=== PATIENT | male | born 1950 | race Caucasian/White ===

== ENCOUNTER 2023-12-03 17:58 | Emergency (ER) | payer MEDICARE, BC, SELFPAY ==
[2023-12-03 18:02] VITALS: BP 113/57; PULSE 93; RESP 18; TEMP 36.1; O2SAT 96; BMI 31.2
[2023-12-03 18:21] LABS: Glucose, Point-of-Care* 98 mg/dl (60-115)
--- NOTE | 2023-12-03 18:50 | CRLHL7_ITS ---
For Patients: As a result of the Century Cures Act, medical imaging exams and procedure reports are released immediately into your electronic medical record. You may view this report before your referring provider. If you have questions, please contact your health care provider. INDICATION: Toe pain TECHNIQUE: Three-views of the left foot FINDINGS/impression: Normal alignment. No acute fractures or acute osseous abnormalities. No fractures. No erosive change no radiographic findings for osteomyelitis Dictated by Nalini Torres MD @ 12/03/2023 7:20:22 PM (Electronically Signed)
[2023-12-03] MEDS: IBUPROFEN 600 MG TABLET PO (18:57)
--- OUTSIDE RECORDS SUMMARY | 2023-12-03 19:18 | XMS_ITS | Clinical Summary ---
Author Name Unknown Organization [employer] [facility] [employer] Address [place], [place] [address] Care Team Providers Care Assistant Plant Control Operator Name Role Phone Julia Diaz Baldemar AuD Unavailable [phone] Cristel Renteria MD Primary Care Prov ider Allergies No known active allergies Medications Medication Sig Dispensed Refills Start Date End Date Status ASPIRIN 81 MG TABIndications:Type II or unspecified type diabetes mellitus without mention of complication, not stated as uncontrolled take 1 tablet (81mg) by oral route once daily 30 0 12/19/2006 Active MULTIVITAMIN ORAL Takes 1 tablet orally daily. 0 Active FLAXSEED OIL 1,000 MG CAP 1 tab twice daily 0 09/09/2008 Active Diabetic ShoeIndications:Diabe tic polyneuropathy associated with type 2 diabetes mellitus (HC),Great toe amputation status, right,Corns and callosities As directed. 2 Each 0 08/30/2017 Active flash glucose scanning reader (FREESTYLE DARON 14 DAY READER) miscIndications:diabe ramesh mellitus As directed. Wear each for 14 days Indications: diabetes 2 Each 0 02/07/2019 Active flash glucose sensor (FREESTYLE DARON 14 DAY SENSOR) kitIndications:diabet es mellitus As directed. Indications: diabetes 1 Each 0 02/07/2019 Active lancets 33 gauge miscIndications:diabe ramesh mellitus As directed. Indications: diabetes 100 Each 12 02/07/2019 Active blood sugar diagnostic (ONETOUCH VERIO) stripIndications:diab etes mellitus Test 1 times per day. Verio strip Indications: diabetes 100 Strip 12 10/22/2019 Active ketorolac 0.5 % ophthalmic (ACULAR) solution 0 02/03/2021 Active amoxicillin-clavulana te 875-125 mg tablet (AUGMENTIN)Indication s:Acute non-recurrent maxillary sinusitis TAKE ONE TABLET BY MOUTH TWICE A DAY WITH MEALS FOR 7 DAYS 14 Tablet 0 03/21/2023 Active atorvastatin (LIPITOR) 20 mg tabletIndications:Hyp ercholesteremia TAKE 1 TABLET BY MOUTH AT BEDTIME 90 Tablet 1 05/29/2023 Active Janumet 50-1,000 mg tabletIndications:Typ e 2 diabetes mellitus with diabetic neuropathy, without long-term current use of insulin (HC) TAKE 1 TABLET BY MOUTH TWICE DAILY WITH MEALS 180 Tablet 0 08/16/2023 Active levothyroxine (SYNTHROID) 50 mcg tabletIndications:Hyp othyroidism, unspecified type TAKE 1 TABLET BY MOUTH EVERY DAY. GENERIC EQUIVALENT FOR SYNTHROID 90 Tablet 0 08/16/2023 Active glipiZIDE (GLUCOTROL) 5 mg tabletIndications:Typ e 2 diabetes mellitus with diabetic neuropathy, without long-term current use of insulin (HC) TAKE 1 TABLET BY MOUTH TWICE DAILY BEFORE MEALS 180 Tablet 0 08/16/2023 Active lisinopriL (PRINIVIL; ZESTRIL) 5 mg tabletIndications:Ess ential hypertension TAKE 1 TABLET BY MOUTH ONCE DAILY 90 Tablet 0 08/16/2023 Active Active Problems Problem Noted Date Diagnosed Date Background retinopathy 04/18/2022 Diabetic peripheral neuropathy 10/21/2020 Acquired absence of right great toe 06/19/2020 Adenomatous colon polyp 11/17/2016 Overview: Colonoscopy 10/2016 polyps repeat in 5 years Colonoscopy 02/2022 diverticulosis, repeat in 5 years Family history of colon cancer 11/16/2016 Overview: Colonoscopy 02/2022 diverticulosis, repeat in 5 years Diverticulosis of large intestine without hemorr antonella 11/16/2016 Diabetes mellitus 04/11/2014 Unspecified hypothyroidism 10/16/2008 Unspecified essential hypertension 04/17/2007 Overview: No outpatient antihypertensives DIABETIC RETINOPATHY 03/01/2007 Overview: Moderate nonproliferative Other and unspecified hyperlipidemia 10/20/2006 Overview: simvastatin 20 mg = 2 x 10 mg tablet (ZOCOR), 20 mg, Oral, DAILY WITH EVENING MEAL Resolved Problems Problem Noted Date Diagnosed Date Resolved Date Diabetic ulcer of right midf oot associated with type 2 diabetes mellitus, limited to breakdown of skin 09/10/2021 09/10/2021 Diabetes type 2, uncontrolled 04/24/2012 05/15/2012 Colon cancer screening 11/14/201111/17 Amputation of toe 02/11/2009 04/05/2022 DIABETIC FOOT ULCER 04/18/2008 02/12/20 09 Overview: Ongoing x 4 years, recent surgery/debridement (ostectomy) by Dr. Rod on 04/25/08. Cellulitis and abscess of foot, except toes 04/17/2007 04/29/2009 Overview: R foot, post operative DIABETIC FOOT ULCER 01/12/2007 05/15/20 12 Type II or unspecified type diabetes mellitus with neurological manifestations, not stated as uncontrolled 10/03/2006 05/15/2012 Overview: Diagnosed in 1995, oral medication, not on insulin. Type II or unspecified type diabetes mellitus without mention of complication, not stated as uncontrolled 06/30/2006 04/29/2008 Overview: 1996 Encounters Date Type Department Care Team Description 11/30/2023 8:00 AM SENIOR AIR DIRECTOR Orders Only [facility] [address] [place] [address] Lab, [place] [facility] 11/30/2023 Travel from Last 3 Months Immunizations Name Administration Dates Next Due AMB INFLUENZA IIV3 (AGE 65+ YRS) PF (Flu Clinic Only) 08/03/2018,07/15/2017 AMB Influenza, IIV3 (Age >=3 years)(Flu Clinic Only) 07/24/2013,08/17/2012,08/25/2010,2007 AMB Influenza, IIV4 PF (=>6 mos Flulaval,Fluzone Fluarix)(Flu Clinic Only) 08/03/2019 Amb Influenza, Inact (High-d ose) (Flu Clinic Only) 08/20/2016,07/18/2015 Amb Influenza, Inactivated A IIV4 (Age 65+ Years) Preserv Free 08/04/2020 COVID-19 vaccine (Moderna 100mcg/0.5mL) PF, MDV 02/03/2022,08/24/2021,01/09/2021,2020 COVID-19 vaccine (Moderna 50mcg/0.5mL) 12YO+ BIVALENT PF, MDV 03/29/2023,07/13/2022 Influenza A (H1N1), Inactivated 10/21/2009 Influenza A (H1N1), Inactiva danita (Age >=3 Years) 10/21/2009 Influenza, High-dose Inactivated 07/15/2014 Influenza, IIV3 (Age 6-35 mos) 08/20/2011 Influenza, IIV3 (Age >=3 years) 08/20/20 11,08/19/2009,08/19/2005,2004 Influenza, Inactivated AIIV4 (Age 65+ Years) Preserv Free 08/22/2023,08/09/2022,08/05/2021 Pneumococcal Poly,23-Valent (Pneumovax) 11/29/2013 Pneumococcal conj 13-Valent (Prevnar 13) 10/17/2017 Tdap 12/20/2007 Zoster (Zostavax-ZVL, live) 05/15/2012 Family History Medical History Relation Name Comments Good Health Brother 1 Good Health Brother 2 Good Health Daughter 1 Good Health Daughter 2 Unknown Father age 93 Other Mother MVA Cancer Other 2 cousins breas t cancer Cancer-colon Sister age 64 Relation Name Status Comments Brother 1 Brother 2 Daughter 1 Daughter 2 Father lives on the Fa no meds Mother (Age 70) Other Sister Social History Tobacco Use Types Packs/Day Years Used Date Smoking Tobacco: Never Smokeless Tobacco: Never Tobacco Cessation:Counseling Given: Yes Comments:none Alcohol Use Standard Drinks/Week Comments No 0 (1 standard drink = 0.6 oz pur e alcohol) none PHQ-2 Answer Date Recorded PHQ-2 TOTAL SCORE 0 04/05/2022 Social Connections Answer Date Recorded Frequency of Communication with Friends and Fami ly Not on file 10/31/2021 Financial Resource Strain Answer Date R ecorded Difficulty of Paying Living Expenses Not on file 10/31/2021 Difficulty of Paying Living Expenses Not on file 10/31/2021 Sex and Gender Information Value Date Recorded Sex Assigned at Not on file Gender Identity Not on file Sexual Orientation Not on file Obstetrics History Last Filed Vital Signs Vital Sign Reading Time Taken Comments Blood Pressure 120/70 01/13/2023 8:56 AM CDT Pulse 92 03/14/2023 2:27 PM CDT Temperature 37.1 ??C (98.8 ??F) 07/06/2023 3:57 PM CD T Respiratory Rate 16 05/24/2021 2:04 PM CDT Oxygen Saturation 96% 03/14/2023 2:27 PM CDT Inhaled Oxygen Concentration - - Weight 110.5 kg (243 lb 8 oz) 03/14/2023 2:27 PM CDT Height 185.4 cm (6' 1) 04/05/2022 9:20 AM CDT Body Mass Index 32.13 04/05/2022 9:20 AM CDT Plan of Treatment Upcoming Encounters Date Type Department Care Team (Late st Contact Info) Description 12/06/2023 9:05 AM SENIOR AIR DIRECTOR Office Visit [facility] [address] [place] [address] Cristel Renteria MD [address] [place] [address] 03/07/2024 8:00 AM CDT Office Visit [facility] [address] [place] [address] Sylvester Clark DPM [address] [place] [address] Health Maintenance Due Date Last Done Comments Zoster (shingles) series for age 50+ (2 of 3) 07/10/2012 05/15/2012 Tetanus booster 12/20/2017 12/20/2007 BMI (ht and wt on same day) for age 18+ 04/05/2023 04/05/2022, 02/05/2021, 07/29/2020, Additional history exists Depression screening for age 12+ 04/05/2023 04/05/2022, 07/29/2020, 07/29/2020, Additional history exists Medicare Wellness for age 65+ 04/06/2023, 07/29/2020, 01/18/2019, Additional history exists COVID-19 vaccine series ( season) 2023 03/29/2023, 07/13/2022, 02/03/2022, Additional history exists Colonoscopy through age 75 03/02/202703/02, 03/02/2022, 11/16/2016, Additional history exists Lipids for age 45-75 04/01/2027 04/01/2022, 09/09/2021, 07/24/2020, Additional history exists Tdap Completed 12/20/2007 Pneumococcal series for age 65+ Completed 7, 11/29/2013 Hepatitis C screening for ag e 18-79 Completed 10/31/2019 (Completed outsid e of [place]) Influenza for age 65+ Completed 08/22/2023 , 08/09/2022, 08/05/2021, Additional history exists Goals Goal Patient Goal Type Associated Problems Recent Progress Patient-Stated? Author BLOOD PRESSURE-MAINTA INS BP LESS THAN 130/80 Blood Pressure No Cristel Renteria MD BLOOD PRESSURE - MAINTAINS BP less than 140/90 Blood Pressure No Cristel Renteria MD Procedures Procedure Name Priority Date/Time Associated Diagnosis Comments URINE ALBUMIN TO CREATININE RATIO, RANDOM Routine 11/30/2023 9:30 AM SENIOR AIR DIRECTOR Type 2 diabetes mellitus without complication, without long-term current use of insulin (HC) HEMOGLOBIN A1C Routine 11/30/2023 7:55 AM SENIOR AIR DIRECTOR Type 2 diabetes mellitus without complication, without long-term current use of insulin (HC) from Last 3 Months Results * URINE ALBUMIN TO CREATININE RATIO, RANDOM (11/30/2023 9:30 AM SENIOR AIR DIRECTOR) ALB RAND URINE <12.0 mg/L 11/30/2023 9:42 PM SENIOR AIR DIRECTOR [facility] CREATININE,URINE 1.51 g/L 11/30/19 9:42 PM SENIOR AIR DIRECTOR [facility] ALBUMIN TO CREATININE RATIO,RAND UR 11/30/2023 9:42 PM SENIOR AIR DIRECTOR [facility] Comment:Urine Albumin below measurement range, unable to calculate. Urine URINE SPECIMEN / Unknown Non-Blood / Unknown 11/30/2023 9:30 AM SENIOR AIR DIRECTOR 11/30/2023 9:42 AM SENIOR AIR DIRECTOR Narrative [facility] - 11/30/2023 9:42 PM SENIOR AIR DIRECTOR If Albumin to Creatinine Ratio is elevated, consider the following: ? Elevations seen with incipient nephropathy associated ?? with diabetes mellitus or hypertension. Stress, exercise,hematuria, ?? and urinary tract infection may also produce elevated results. If clinically indicated, confirm with ?24 Hour Albumin to Creatinine Ratio. ?? Cristel Renteria MD URINE [facility] [address] [place] [address], * (ABNORMAL) HEMOGLOBIN A1C MONITORING (POCT) (11/30/2023 7:55 AM SENIOR AIR DIRECTOR) HEMOGLOBIN A1C MONITORING (POCT) 7.6(H) <=6.4 % 11/30/2023 8:05 AM SENIOR AIR DIRECTOR [facility] Blood BLOOD SPECIMEN / Unknown Venipuncture / Unknown 11/30/2023 7:55 AM SENIOR AIR DIRECTOR 11/30/2023 7:56 AM SENIOR AIR DIRECTOR Narrative [facility] - 11/30/2023 8:05 AM SENIOR AIR DIRECTOR ? (<=6.9%) ? Indicates good control ? (7.0% to 7.9%) ? Indicates fair control ? (>=8.0%) ? Indicates poor control ?? NOTE: ??These thresholds are guidelines and ?individual targets may vary. Falsely low levels may be seen with: Recent Transfusion, Recent Significant Blood Loss, Hemolytic Diseases, or Falsely elevated levels may be seen with: Untreated Anemias, Splenectomy ? Cristel Renteria MD CHEMISTRY [facility] [address] [place] [address], [place] [phone] from Last 3 Months Advance Directives Documents on File Type Date Recorded Patient Staff Pharmacist Hospital Expl anation Healthcare Directive 07/25/2013 3:21 PM AM Shi [place], 2013 Latest Code Status on File Code Status Date Activated Date Inactivated Comments Full Code 02/05/2009 8:32 AM 02/05/2009 2:53 PM Code Status History Code Status Date Activated Date Inactivated Comments Full Code 04/29/2008 12:31 AM 05/01/2008 12:47 PM Full Code 04/25/2008 6:15 AM 04/25/2008 12:18 PM Full Code 04/17/2007 4:12 PM 04/19/2007 4:05 PM Full Code 04/16/2007 2:36 PM 04/17/2007 4:12 PM Care Teams Assistant Plant Control Operator Relationship Specialty Start Date End Date Cristel Renteria MD [address] [place] [address] PCP - General Family Practice 03/03/20 Julia Diaz AuD Audiology 12/03/13
[2023-12-03] MEDS: GABAPENTIN 100 MG CAPSULE PO (19:25)
--- NOTE | 2023-12-03 19:31 | ED_ITS ---
HPI - General Adult General Chief complaint: Extremity Pain/Injury, Lower Stated complaint: L toes diabetic issues, pain Time Seen by Provider: 12/03/23 18:14 History of Present Illness HPI narrative: This is a pleasant 73-year-old male with a history of type 2 diabetes (now well controlled by diet so off medications and does not routinely check his blood sugars on the advice of his doctor), known diabetic neuropathy with previous right great toe amputation and chronic numbness affecting the toes on both of his feet. He presents to the ER today for pain involving the 2nd, 3rd, 4th toes on his left foot. Since yesterday he has been having very brief 1-4 second episodes of sharp intense stabbing pain in those 3 toes only. He does know what brings it on. It happens every few minutes and last for brief 2nd and then is gone. No other symptoms. No redness or swelling of his toes. No pallor or discoloration of his toes. No known injury. He has not dropped anything on his foot. He wears diabetic protective shoes. He has been doing a lot of walking at the widest a healthy. He stopped bicycling recently because he has trouble with his right knee. No fevers or chills. No swelling in his toes or foot or leg. Related Data Home Medications Medication Instructions Recorded Confirmed atorvastatin 20 mg tablet 20 mg PO QPM 12/03/23 12/03/23 glipizide 5 mg tablet 5 mg PO BID 12/03/23 12/03/23 levothyroxine 50 mcg tablet 50 mcg PO DAILY 12/03/23 12/03/23 lisinopril 5 mg tablet 5 mg PO DAILY 12/03/23 12/03/23 sitagliptin phosphate 50 1 tab PO BID 12/03/23 12/03/23 mg-metformin 1,000 mg tablet (Nick) Previous Rx's Medication Instructions Recorded gabapentin 100 mg capsule 100 mg PO TID #14 caps 12/03/23 ibuprofen 600 mg tablet 600 mg PO TID PRN #14 tabs 12/03/23 Allergies Allergy/AdvReac Type Severity Reaction Status Date / Time No Known Drug Allergies Allergy Verified 12/03/23 18:05 PFSH PFSH Social History Smoking Status: Never smoker How often do you have a drink containing alcohol: never How often do you have six or more drinks on one occasion: Never AUDIT-C Alcohol total score: 0 Non-prescribed substance use: denies use Exam Narrative: Exam Narrative: Constitutional: Appears well-developed and well-nourished. Alert. Conversant. Non toxic. HENT: Head: Atraumatic. Nose: Nose normal. Mouth/Throat: Oral mucosa is clear and moist. no trismus. Eyes: Conjunctivae normal. EOM normal. Pupils equal, round, and reactive to light. No scleral icterus. Neck: Normal range of motion. Neck supple. No tracheal deviation present. Cardiovascular: Normal rate, regular rhythm. No gallop. No friction rub. No murmur heard. Symmetric DP and PT artery pulses Pulmonary/Chest: Effort normal. No stridor. No respiratory distress. No wheezes. No rales. No rhonchi . No tenderness. Abdominal: Soft. Bowel sounds normal. No distension. No mass. No tenderness. No rebound. No guarding. Musculoskeletal: RUE: Normal range of motion. No tenderness. No deformity LUE: Normal range of motion. No tenderness. No deformity RLE: Normal range of motion. No edema. No tenderness. No deformity. Amputation of great toe. Well-healed. LLE: Normal range of motion. No edema. No tenderness. No deformity. There is a very subtle area of abrasion on the dorsum of the 3rd toe without any surrounding erythema. No purulent drainage. No ulcer. Toenails look good. Web spaces look good. Inspection of the 1st, 2nd, 3rd, 4th, 5th toes on the right foot are otherwise normal. Normal distal cap refill. Toes are warm and symmetric with the right foot. Intact plantar flexion and dorsiflexion of the toes and ankle. Normal range of motion. Lymph: No foot redness or ascending lymphangitis Neurological: Alert and oriented to person, place, and time. Normal strength. CN II-VII intact. No sensory deficit. GCS eye subscore is 4. GCS verbal subscore is 5. GCS motor subscore is 6. Normal coordination . He has chronic numbness affecting the toes of both of his feet. No new tenderness palpation. Skin: Skin is warm and dry. No rash noted. No pallor. Normal capillary refill. Psychiatric: Normal mood. Normal affect. Const: Vital Signs, click to edit/add: Vital Signs - 24 hr 12/03/23 18:02 Temperature 96.9 F L Pulse Rate [Right Pulse Oximeter] 93 Respiratory Rate 18 Blood Pressure [Ri ght Upper Arm] 113/57 L Pulse Oximetry 96 Oxygen Delivery Me thod Room Air Course Vital Signs Vital signs: Initial Vital Signs Temperature 96.9 F L 12/03/23 18:02 Temperature Source Temporal Artery Scan 12/03/23 18:02 Pulse Rate 93 12/03/23 18:02 Respiratory Rate 18 12/03/23 18:02 Blood Pressure 113/57 L 12/03/23 18:02 Blood Pressure Mean 75 12/03/23 18:02 Blood Pressure Position Sitting 12/03/23 18:02 Pulse Oximetry 96 12/03/23 18:02 Oxygen Delivery Method Room Air 12/03/23 18:02 Vital Signs Temperature 96.9 F L 12/03/23 18:02 Pulse Rate 93 12/03/23 18:02 Respiratory Rate 18 12/03/23 18:02 Blood Pressure 113/57 L 12/03/23 18:02 Pulse Oximetry 96 12/03/23 18:02 Oxygen Delivery Method Room Air 12/03/23 18:02 Temperature 96.9 F L 12/03/23 18:02 Pulse Rate 93 12/03/23 18:02 Respiratory Rate 18 12/03/23 18:02 Blood Pressure 113/57 L 12/03/23 18:02 Pulse Oximetry 96 12/03/23 18:02 Oxygen Delivery Method Room Air 12/03/23 18:02 Medications Administered Medications: Generic Name Dose Route Start Last Admin Trade Name Freq PRN Reason Stop Dose Admin Gabapentin 100 mg 12/03/23 18:51 12/03/23 19:25 Gabapentin 100 Mg Capsule PO 12/03/23 18:52 100 mg ONCE ONE Administration Ibuprofen 600 mg 12/03/23 18:51 12/03/23 18:57 Ibuprofen 600 Mg Tablet PO 12/03/23 18:52 600 mg ONCE ONE Administration Medical Decision Making [facility] Narrative Medical decision making narrative: Pleasant 73-year-old male presents to the ER today for intermittent very brief but very sharp episodes of pain involving the 2nd, 3rd, 4th toes on the left foot. He has a history of diabetes and diabetic neuropathy. He has had previous have been taken of his right foot great toe. Clinically I suspect that his pain is probably related to diabetic neuropathy in his foot. He says this is happen from time to time intermittently for the past few years and he has al ways, in the past attributed to days when his blood sugar runs high. However his blood sugar in the ER today is normal at 98. I still wonder if this could be diabetic neuropathy pain. Pain is improved intolerable after ibuprofen and gabapentin 100 mg p.o. given here in the ER. Given his diabetic neuropathy and numbness we did obtain x-rays to look for occult fracture, even though exam was normal. X-rays are reassuring. Exam shows no evidence for redness or warmth or purulent drainage to suggest infection on the toes or in the webspaces, under the nails, or on the soles of the foot. No evidence for any radiopaque foreign body visible on the x-ray. There is no pallor, cyanosis, coldness of the toes. He has strong palpable pulses in the PT and DP arteries so I doubt acute limb ischemia. No evidence for swelling to suggest DVT. No evidence for any bony erosions on the x-ray to suggest osteomyelitis. No pain involving his great toe or 5th toe. No other recent injury. No back pain or other pain down the leg to suggest a lumbar radiculopathy. Plan of care will be discharged home his pain is now improving. Follow-up with primary care on Tuesday for recheck. Precautions for return to the ER reviewed. Lab Data Labs: Lab Results 12/03/23 Range/Units 18:20 POC Glucose 98 (60-115) mg/dl Imaging Data xr foot: Attestation: I have reviewed the pertinent imaging results. Radiologist's impression: FINDINGS/impression: Normal alignment. No acute fractures or acute osseous abnormalities. No fractures. No erosive change no radiographic findings for osteomyelitis Discharge Plan Discharge Clinical Impression: Pain of toe of left foot Patient Disposition: Home, Self-Care Condition: Stable Instructions: Diabetic Neuropathy (ED) Additional Instructions: As we discussed, the cause of the pain in her toes is not clear at this time, but we suspect it is related to irritation of the nerves going to your toes from diabetic neuropathy. We can treat this pain with ibuprofen and we will start you on a nerve pain medication called gabapentin. Use caution with gabapentin could because it can cause drowsiness Please follow-up with your regular doctor for recheck on Tuesday. Return to the ER right away if you have any concerns especially new redness, swelling, pallor of your toes, worsening pain, high fever, or if you have any other problems. Prescriptions: New ibuprofen 600 mg tablet 600 mg PO TID PRNQty: 14 0RF gabapentin 100 mg capsule 100 mg PO TID Qty: 14 0RF No Action atorvastatin 20 mg tablet 20 mg PO QPM levothyroxine 50 mcg tablet 50 mcg PO DAILY lisinopril 5 mg tablet 5 mg PO DAILY glipizide 5 mg tablet 5 mg PO BID Janumet 50-1,000 mg tablet 1 tab PO BID Follow Up/Referrals: Cristel Renteria MD [Primary Care Provider] - Stand Alone Forms: [employer] Info Instructions
== END 2023-12-03 19:48 | disposition home or self-care (01) ==
PROVIDERS: Emergency Provider Emergency Medicine; PCP Family Medicine
DX: M79.675 Pain in left toe(s) (principal)
CPT/HCPCS: 73630; 82947; 99282; 99283; 99284; A9270

== ENCOUNTER 2024-04-24 07:30 | Outpatient (RCR) | payer MEDICARE, BC, SELFPAY | END 2024-06-29 08:25 | disposition home or self-care (01) | PROVIDERS: PCP Family Medicine; Visit Provider Family Medicine | DX: M25.561 Pain in right knee (principal); Z51.89 Encounter for other specified aftercare | CPT/HCPCS: 97110; 97140; 97161 ==